=== PATIENT | male | born 1965 | race African-American/Black ===

== ENCOUNTER 2022-07-27 00:32 | Emergency (ER) | payer SELFPAY ==
[~2022-07-27] VITALS: Ht 188 cm; Wt 97.5 kg
--- NOTE | 2022-07-27 03:31 | NUR ---
BIBSELF C/O LEFT SIDE GENITAL PAIN FOR THE PAST 7 MONTHS FELT WORSE TONIGHT. PT A/OX4. RESP EVEN AND NONLABORED ON R/A. PT AMBULATORY WITH STEADY GAIT. SAFETY MEASURES IN PLACE
[2022-07-27] MEDS ORDERED: ONDANSETRON HCL/PF 4 MG/2 ML VIAL ONE ×2 (03:39→10:32)
[2022-07-27] MEDS ORDERED: MORPHINE SULFATE INJ 2 MG/ML DISP.SYRIN ONE (03:39)
[2022-07-27] MEDS ORDERED: MORPHINE SULFATE INJ 2 MG/ML DISP.SYRIN IV ONE ×2 (04:00→11:00)
[2022-07-27] MEDS ORDERED: IV NS 0.9% 500 ML BAG IV ONE (04:00)
[2022-07-27] MEDS ORDERED: ONDANSETRON HCL/PF 4 MG/2 ML VIAL IVP ONE (04:00)
--- NOTE | 2022-07-27 04:01 | NUR ---
L HAND #18G S/L BLOOD COLLECTED AND SENT TO LAB. PT NOT ABLE TO COLLECT URINE AT THIS TIME. WILL F/U AND TRY AGAIN
[2022-07-27 04:04] LABS: BASOPHILS % (AUTO) 0.5 % (0.0-2.0); EOSINOPHILS % (AUTO) 3.2 % (0.0-6.0); HEMATOCRIT 38 % (39-51); HEMOGLOBIN 11.8 g/dL (13.5-17.5); LYMPHOCYTES % (AUTO) 31.8 % (20.0-44.0); MEAN CORPUSCULAR HGB CONC 31 g/dl (31.0-36.0); MEAN CORPUSCULAR VOLUME 77 fL (80-96); MONOCYTES # (AUTO) 0.4 K/uL (0.1-1.30); MONOCYTES % (AUTO) 6.3 % (2.0-12.0); NEUTROPHILS # (AUTO) 3.7 K/uL (1.8-8.9); NEUTROPHILS % (AUTO) 58.2 % (43.0-81.0); PLATELET COUNT (AUTO) 162 K/uL (150-450); RED BLOOD CELL COUNT(AUTO) 4.91 MIL/uL (4.5-6.0); WHITE BLOOD COUNT (AUTO) 6.4 K/uL (4.3-11.0)
[2022-07-27 04:16] LABS: ALBUMIN 3.7 g/dL (3.4-5.0); BILIRUBIN,DIRECT 0.1 mg/dL (0.0-0.2); BILIRUBIN,TOTAL 0.2 mg/dL (0.2-1.0); CALCIUM, SERUM 9.4 mg/dL (8.5-10.1); CREATININE 1.1 mg/dL (0.6-1.3); POTASSIUM 4.3 mmol/L (3.5-5.1); TOTAL PROTEIN, SERUM 7.1 g/dL (6.4-8.2)
--- NOTE | 2022-07-27 04:35 | NUR ---
US TECH AT THE PT'S BEDSIDE
--- NOTE | 2022-07-27 05:06 | NUR ---
SNAKER DRIVING HORSES AT PT'S BEDSIDE
--- NOTE | 2022-07-27 05:16 | NUR ---
URINE SENT TO LAB
--- NOTE | 2022-07-27 06:07 | NUR ---
CALLED STAT RAD TO F/U WITH CT & US RESULTS; ESTIMATED TIME FOR REPORT TO BE READ 2 HRS
[2022-07-27 06:18] LABS: BILIRUBIN,URINE NEGATIVE (NEGATIVE); COLOR,URINE YELLOW (YELLOW); LEUKOCYTE ESTERASE ,URINE NEGATIVE (NEGATIVE); NITRITE, URINE NEGATIVE (NEGATIVE); PROTEIN,URINE NEGATIVE (NEGATIVE); UGLUCOSE NEGATIVE (NEGATIVE); UROBILINOGEN,URINE 0.2 EU/dL (0.2)
[2022-07-27] MEDS ORDERED: KETOROLAC TROMETHAMINE INJ 30 MG/ML VIAL IV ONE (09:30)
[2022-07-27] MEDS ORDERED: KETOROLAC TROMETHAMINE 15 MG/ML VIAL ONE (10:32)
[2022-07-27] MEDS ORDERED: MORPHINE SULFATE INJ 4 MG/ML DISP.SYRIN ONE (10:45)
[2022-07-27] MEDS ORDERED: ONDANSETRON HCL/PF 4 MG/2 ML VIAL IV ONE (11:00)
--- NOTE | 2022-07-27 11:00 | NUR ---
DR MORRISON AT BEDSIDE EXPLAINED THAT THE PT NEED SURGERY FOR HIS OBSTRUCTION, PT STATED THAT HE DOES NOT WANT TO GO THROUGH WITH TREATMENT, EXPLAINED RISKS OF LEAVING INCLUSING , PROCEED TO SIGNED AGAINST MEDICAL ADVISE FORM. IV REMOVED AND 2X2 GUAZE APPLIED FOR PRESSURE. PT LEFT THE FACILITY WALKING.
--- NOTE | 2022-07-27 11:22 | NUR ---
Marisabel shelby in [place] - 07/27/22 at 1122 by MEG Patient discharged to home in stable condition. Written and verbal after care instructions given. Patient verbalizes understanding of instruction.
[2022-07-27 11:47] VITALS: BP 126/82
== END 2022-07-27 11:47 | disposition left against medical advice (07) ==
LOC: ER 00:36
DX: K56.609 Unspecified intestinal obstruction, unspecified as to partial versus complete obstruction (principal); K40.90 Unilateral inguinal hernia, without obstruction or gangrene, not specified as recurrent; N50.89 Other specified disorders of the male genital organs; Z60.2 Problems related to living alone
CPT/HCPCS: 99285; 96374; 72192; 96361; 96375; 96376; 76870; 85025; 80048; 80076; 81003; 36415; 85730; 87081; J2270 ×2; J2405 ×2; J7040; J1885

== ENCOUNTER 2022-07-27 18:42 | Inpatient (IN) | payer MEDICAID ==
[~2022-07-27] VITALS: Ht 188 cm; Wt 83.0 kg
--- NOTE | 2022-07-27 21:00 | NUR ---
TO ER BED 9. BIBS C/O TESTICULAR SWELLING. PT IS ALERT AND ORIENTED. RR EVEN AND NONLABORED. PAIN IS 8/10 ON P/S, WORSE WITH MOVEMENT. CONNECTED TO MONITOR. AWAITING MD EASTMAN
--- NOTE | 2022-07-27 21:15 | NUR ---
CALLED DR BURTON, SPEAKING WITH DR HARE
[2022-07-27] MEDS ORDERED: ONDANSETRON HCL/PF 4 MG/2 ML VIAL ONE (21:25)
[2022-07-27] MEDS ORDERED: MORPHINE SULFATE INJ 4 MG/ML DISP.SYRIN ONE (21:25)
[2022-07-27] MEDS ORDERED: IV NS 0.9% 250 ML IV ONE (21:26)
[2022-07-27] MEDS ORDERED: IOHEXOL-300 100 ML VIAL IV ONE (21:26)
[2022-07-27] MEDS ORDERED: MORPHINE SULFATE INJ 2 MG/ML DISP.SYRIN IV ONE (21:30)
[2022-07-27] MEDS ORDERED: ONDANSETRON HCL/PF - ER 4 MG/2 ML VIAL IV ONE (21:30)
--- NOTE | 2022-07-27 21:36 | NUR ---
COVID SWAB DONE AND SENT TO LAB
--- NOTE | 2022-07-27 21:47 | NUR ---
BLOOD COLLECTED AND SENT TO LAB
--- NOTE | 2022-07-27 21:47 | NUR ---
ELAINE ESTABLISHED, LISA
--- NOTE | 2022-07-27 21:48 | NUR ---
PT TAKEN TO CT SCAN VIA PIO
[2022-07-27 21:53] LABS: BASOPHILS % (AUTO) 0.6 % (0.0-2.0); EOSINOPHILS % (AUTO) 2.5 % (0.0-6.0); HEMATOCRIT 38 % (39-51); HEMOGLOBIN 11.8 g/dL (13.5-17.5); LYMPHOCYTES # (AUTO) 2.1 K/uL (0.8-4.8); MEAN CORPUSCULAR HGB CONC 31 g/dl (31.0-36.0); MEAN CORPUSCULAR VOLUME 77 fL (80-96); MONOCYTES # (AUTO) 0.5 K/uL (0.1-1.30); MONOCYTES % (AUTO) 7.1 % (2.0-12.0); NEUTROPHILS # (AUTO) 4.1 K/uL (1.8-8.9); NEUTROPHILS % (AUTO) 58.8 % (43.0-81.0); PLATELET COUNT (AUTO) 174 K/uL (150-450); RED BLOOD CELL COUNT(AUTO) 4.91 MIL/uL (4.5-6.0); WHITE BLOOD COUNT (AUTO) 6.9 K/uL (4.3-11.0)
--- NOTE | 2022-07-27 21:59 | NUR ---
PT BACK FROM CT WITHOUT INCIDENT, RECONNECTED TO MONITOR
[2022-07-27 22:30] LABS: CALCIUM, SERUM 9.4 mg/dL (8.5-10.1); CREATININE 1.3 mg/dL (0.6-1.3); POTASSIUM 4.7 mmol/L (3.5-5.1)
[2022-07-27] MEDS ORDERED: MAG HYDROX/AL HYDROX/SIMETH 30 ML UDC PO PRN (22:30)
[2022-07-27] MEDS ORDERED: Z GUARD REMEDY 4 OZ OINT TP PRN (22:30)
[2022-07-27] MEDS ORDERED: PIPERACILLIN /TAZOBACTAM 3.375 G in IV D5W 50 ML IV ONE (22:30)
[2022-07-27] MEDS ORDERED: IV NS 0.9% 1,000 ML IV PRN (22:30)
[2022-07-27] MEDS ORDERED: ACETAMINOPHEN 325 MG TABLET PO PRN (22:30)
[2022-07-27] MEDS ORDERED: PIPERACILLIN /TAZOBACTAM 3.375 G VIAL IV ONE (22:59)
--- NOTE | 2022-07-28 01:11 | NUR ---
PT GOING TO 322-1
--- NOTE | 2022-07-28 01:15 | NUR ---
report given to Rasta for CHIP.
[2022-07-28 01:40] VITALS: BP 125/83
--- NOTE | 2022-07-28 01:40 | NUR ---
MS EP[facility]EMIOLOGY [facility] NOTES RECEIVED FROM ER PER PIO THIS 56 YO MALE,ALERT,ORIENTED X4,ABLE TO AMBULATE,WITH CHIEF COMPLAINTS OF LEFT INGUINAL PAIN 2 DAYS PRIOR TO ADMISSION.WITH SALINE LOCK INSERTED IN ER # 20 ON LEFT HAND.NOTED HUGE INGUINAL AREA SWELLING,AND ITS PAINFUL NOW A DAYS.CT ABDOMEN PELVIS SHOWS LEFT INGUINAL HERNIA ESTIMATED 225MM ,CONTAINING SMALL BOWEL,COLON AND VASCULATURE.REFUSED TO BE CHECKED,NO SKIN ISSUES.CALL LIGHT IN REACH,NEEDS ANTICIPATED.
--- NOTE | 2022-07-28 01:40 | NUR ---
pt was transport to the unit on [facility] with emt at bed side on stable condition. Pt ambualted from [facility] to bed on steady gait
[2022-07-28 01:45] VITALS: BP 125/83
[2022-07-28] MEDS: ONDANSETRON HCL/PF 4 MG/2 ML VIAL IVP PRN ×2 (03:19→15:10)
--- NOTE | 2022-07-28 03:19 | NUR ---
MS RN NOTES FEELING NAUSEATED,ZOFRAN 4MG IV GIVEN ORDERED.
[2022-07-28] MEDS: MORPHINE SULFATE INJ 2 MG/ML DISP.SYRIN IV PRN ×4 (03:21→20:54)
--- NOTE | 2022-07-28 03:21 | NUR ---
MS RN NOTES HAVING PAIN ON LEFT INGUINAL AREA,MORPHINE 4MG IV GIVEN ORDERED.VITAL SIGNS STABLE.
--- NOTE | 2022-07-28 03:22 | NUR ---
MS RN NOTES STARTED ON IVF NS AT 75ML/HR RATE FOR HYDRATION
--- NOTE | 2022-07-28 07:15 | NUR ---
MS RN NOTES CHARGE NURSE INFORMED RN,PATIENT GOING FOR SURGERY THIS MORNING AT 11AM, REPAIR OF INCARCERATED HERNIA BY DR BURTON.PATIENT MADE AWARE.BREAKFAST HELD,NAKITA AZEVEDO AND EVELIO JOSEPH MADE AWARE.
--- NOTE | 2022-07-28 07:38 | NUR ---
MS RN OPENING NOTES RECEIVED PATIENT IN HIS ROOM, AOX4, AMBULATORY, PATIENT ON ROOM AIR SATURATING WELL AT 98% WITH NO NOTED RESPIRATORY DISTRESS. PATIENT HAS LFA G#20 IV ACCESS, PATENT, FLUSHES WELL. PATIENT HAS BEEN PLACING HIS IV FLUIDS OF NS ON AND OFF DESPITE HEALTH TEACHINGS. PATIENT HAS BEEN PLACED ON NPO A FEW MINUTES AGO BY NIGHT NURSE. FOR HERNIA REPAIR SURGERY BY DR BURTON, WILL CONTINUE TO MONITOR STRICT ADHERENCE. SAFETY MEASURES IN PLACE: BED AT LOWEST POSITION, LOCKED, SIDE RAILS UP X2, CALL LIGHT AND TRAY TABLE WITHIN REACH. WILL CONTINUE TO MONITOR DURING MY SHIFT.
--- NOTE | 2022-07-28 07:58 | NUR ---
RN NOTES - PAIN MEDICATION PATIENT REPORTS 9/10 LEFT INGUINAL PAIN, ADMINISTERED MORPHINE SULFATE 4 MG VIA IV. WILL CONTINUE TO MONITOR.
[2022-07-28 08:00] VITALS: BP 136/94
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
--- NOTE | 2022-07-28 08:10 | NUR ---
RN NOTE - PUBLIC RELATIONS WRITER IN THE ROOM PT'S ROOM SMELLED LIKE CIGARETTE, NO CIGARETTE OR SMOKE NOTED. CHARGE NURSE AND PUBLIC RELATIONS WRITER INFORMED PT OF SMOKING POLICY. WILL CONTINUE TO MONITOR.
[2022-07-28] MEDS: PANTOPRAZOLE 40 MG VIAL IV SCH (08:26)
[2022-07-28 08:47] LABS: BASOPHILS % (AUTO) 0.4 % (0.0-2.0); EOSINOPHILS % (AUTO) 2.9 % (0.0-6.0); HEMATOCRIT 41 % (39-51); HEMOGLOBIN 12.8 g/dL (13.5-17.5); LYMPHOCYTES # (AUTO) 2.6 K/uL (0.8-4.8); LYMPHOCYTES % (AUTO) 39.9 % (20.0-44.0); MEAN CORPUSCULAR HGB CONC 31 g/dl (31.0-36.0); MEAN CORPUSCULAR VOLUME 77 fL (80-96); MONOCYTES # (AUTO) 0.5 K/uL (0.1-1.30); MONOCYTES % (AUTO) 6.9 % (2.0-12.0); NEUTROPHILS # (AUTO) 3.3 K/uL (1.8-8.9); NEUTROPHILS % (AUTO) 49.9 % (43.0-81.0); PLATELET COUNT (AUTO) 184 K/uL (150-450); RED BLOOD CELL COUNT(AUTO) 5.28 MIL/uL (4.5-6.0); WHITE BLOOD COUNT (AUTO) 6.6 K/uL (4.3-11.0)
--- NOTE | 2022-07-28 09:10 | NUR ---
RN NOTES - MD CONSULT DR BURTON AT BEDSIDE, DISCUSSED PLAN FOR SURGERY TOMORROW MORNING 07/29 AT 0730, NPO IS AWAKE OF NPO AT MIDNIGHT.
[2022-07-28 09:32] LABS: CALCIUM, SERUM 9.4 mg/dL (8.5-10.1); CREATININE 1.2 mg/dL (0.6-1.3); MAGNESIUM 2.3 mg/dL (1.8-2.4); POTASSIUM 3.9 mmol/L (3.5-5.1); THYROID STIMULATING HORMONE 3.586 uIU/mL (0.358-3.74)
--- NOTE | 2022-07-28 10:45 | NUR ---
RN NOTES - SURGERY CONSENTS SIGNED.
--- NOTE | 2022-07-28 14:57 | NUR ---
RN NOTES - CALLED SECURITY TO CHECK PT, ROOM SMELLS LIKE CIGARETTE SMOKE.
--- NOTE | 2022-07-28 15:07 | NUR ---
RN NOTES - PT WANTED TO WALK TO GET SOME SUN, OFFERED TO WALK FOR 10 MINS AT 1500 PT AGREED, WHEN I CAME BACK TO HIS ROOM HE SAID HE IS IN PAIN AND NAUSEOUS, WANTED TO JUST LAY DOWN INSTEAD. I TOLD HIM THAT I WILL NOT HAVE TIME TO TAKE HIM FOR A WALK LATER, AGREED.
--- NOTE | 2022-07-28 15:17 | NUR ---
RN NOTES PATIENT REFUSED FOR HIS VITAL SIGNS TO BE TAKEN, JUST WANTED TO LAY DOWN BECAUSE HE IS IN PAIN AND NAUSEOUS. GIVEN MORPHINE 4 MG VIA IV AND ZOFRAN, WILL CONTINUE TO MONITOR.
--- NOTE | 2022-07-28 17:14 | NUR ---
RN NOTES - DINORAH SILVERIO ANESTH. CALLED TO INFORM THAT PATIENT MUST BE ON STRICT NPO STARTING 2330 TONIGHT. SPOKE WITH THE PATIENT AND REITERATED NPO ADHERENCE, PATIENT UNDERSTANDS THAT NON-COMPLIANCE COULD BE FATAL. SIGN UP TO REMIND EVERYONE. WILL ENDORSE TO THE NEXT NURSE.
--- NOTE | 2022-07-28 18:41 | NUR ---
MS RN CLOSING NOTES PATIENT IN HIS ROOM, AOX4, AMBULATORY, PATIENT ON ROOM AIR WITH NO APPARENT RESPIRATORY DISTRESS. PATIENT HAS LFA G#20 IV ACCESS, PATENT, FLUSHES WELL. NS IV IS ON HOLD SINCE PATIENT KEEPS REMOVING IT DESPITE MULTIPLE REMINDERS. PATIENT HAD 2 TRAYS OF DINNER AND IS AWARE OF THE NPO STARTING 2330 FOR THE HERNIA REPAIR SURGERY BY DR BURTON AT 0730 TOMORROW. SAFETY MEASURES MAINTAINED: BED AT LOWEST POSITION, LOCKED, SIDE RAILS UP X2, CALL LIGHT AND TRAY TABLE WITHIN REACH. WILL ENDORSE TO MAINTENANCE PAINTER APPRENTICE.
--- NOTE | 2022-07-28 19:34 | NUR ---
RN OPENING NOTES RECEIVED PT LAYING IN BED ASLEEP, AWAKENS TO VERBAL STIMULI. AOX4, ABLE TO MAKE NEEDS KNOWN. ON RA AND TOLERATING WELL. NO SOB NOTED. NO S/SX OF DISTRESS NOTE. IV ACCESS IN LFA #20G. PATIENT REFUSES IV FLUIDS. SAFETY PRECAUTIONS IN PLACE: BED IN LOWEST, LOCKED POSITION, SIDERAILS UPx2, AND BRAKES ON. TABLE AND CALL LIGHT WITHIN REACH. ALL NEEDS MET AT THIS TIME. Addendum: 07/29/22 at 0022 by DAVID TOUSSAINT RN REMINDED PATIENT THAT HE IS NPO AFTER 2230. Addendum: 07/29/22 at 0024 by DAVID TOUSSAINT RN TIME SHOULD BE 2330.
[2022-07-28 20:00] VITALS: BP 107/57
--- NOTE | 2022-07-28 20:03 | NUR ---
RN NOTES PT TRYING TO GO DOWN ELEVATOR. EDUCATED PATIENT THAT SINCE HE IS IN THE HOSPITAL HE SHOULD NOT LEAVE THE FLOOR. PT BECAME AGITATED AND SAID "WHAT DO YOU MEAN I CANT GO DOWN? I AM ABLE TO LEAVE." EXPLAINED THAT PATIENT IS UNSTABLE AND SHOULD NOT BE WALKING ON OTHER FLOORS DUE TO SAFETY AND HEALTH. PT SAID "YOU AREN'T GIVING ME THE WHOLE TRUTH. DEMOCRATS DON'T TELL THE WHOLE TRUTH. SHE'S LIKE A [employer]." EXPLAINED TO PATIENT THAT ONLY PTS WHO SIGN A FORM TO SMOKE CAN GO DOWNSTAIRS TO SMOKE. SAID HE WOULD SIGN FORM AND BECAME FURTHER AGITATED WHEN SECURITY ARRIVED. CONTINUED TO SAY WE WERE KEEPING THE WHOLE TRUTH FROM HIM. SIGNED SMOKING FORM. ACCOMPANIED BY 2 SECURITY GUARDS AND ERIC MACE DOWNSMARIAH.
--- NOTE | 2022-07-28 20:54 | NUR ---
RN NOTES ADMINISTERED MORPHINE FOR PAIN 05/29 PER MD ORDER. VS WNL.
--- NOTE | 2022-07-28 21:13 | NUR ---
RN NOTES ADMINISTERED MORPHINE PER PT "I WAS TRYING TO SORT OUT THE NASTY PEOPLE. I KNOW THE POLICIES AND HAVE BEEN HERE YEARS BEFORE. I HAD MY VACUUM DRIER TENDER AND CIGARETTES IN MY POCKET TO GO SMOKE OUTSIDE. I HAVE DEALT WITH THOSE SECURITY GUARDS AND THAT CHARGE NURSE BEFORE." NURSE WHO ADDRESSED PATIENT WAS PRIMARY NURSE AND HAS NEVER BEEN CHARGE NURSE.
--- NOTE | 2022-07-28 23:30 | NUR ---
RN NOTES ENTERED PATIENT'S ROOM TO CHECK FOR FOOD. NO FOOD SEEN AT BEDSIDE AND PT ASLEEP IN BED. REPEATED PATIENT'S ORDER FOR NPO AT 2315. PT VERBALIZED THAT HE UNDERSTANDS.
[2022-07-29] MEDS: MORPHINE SULFATE INJ 2 MG/ML DISP.SYRIN IV PRN ×2 (03:25→07:29)
[2022-07-29] MEDS: ONDANSETRON HCL/PF 4 MG/2 ML VIAL IVP PRN (03:26)
--- NOTE | 2022-07-29 03:26 | NUR ---
RN NOTES ADMINISTERED MORPHINE FOR PAIN 06/29 PER MD ORDER. VS WNL. ADMINISTERED ZOFRAN FOR NAUSEA PER PT REQUEST.
--- NOTE | 2022-07-29 05:20 | NUR ---
RT Pt refused EKG. RN notified.
--- NOTE | 2022-07-29 05:22 | NUR ---
RN NOTES PT REFUSED PRE-OP EKG.
--- NOTE | 2022-07-29 06:43 | NUR ---
RN CLOSING NOTES PT LAYING IN BED, ASLEEP, AWAKENS TO VERBAL STIMULI. AOX4, ABLE TO MAKE NEEDS KNOWN. ON RA AND TOLERATING WELL. NO SOB NOTED. NO S/SX OF DISTRESS NOTE. IV ACCESS IN LFA #20G. PATIENT REFUSES IV FLUIDS. ALL ORDERS CARRIED OUT. ALL NEEDS MET. PT KEPT CLEAN AND DRY. INFORMED PT OF NPO STATUS AFTER 2330. NO FOOD OR FLUIDS IN ROOM. SAFETY PRECAUTIONS IN PLACE: BED IN LOWEST, LOCKED POSITION, SIDERAILS UPx2, AND BRAKES ON. TABLE AND CALL LIGHT WITHIN REACH. WILL ENDORSE TO ONCOMING SHIFT FOR CHIP.
[2022-07-29] MEDS ORDERED: ANESTHESIA TRAY IN PYXIS 1 EA TRAY MC ONE ×2 (07:04→09:27)
[2022-07-29] MEDS ORDERED: ROCURONIUM BROMIDE 50 MG/5 ML ONE (07:07)
[2022-07-29] MEDS ORDERED: FENTANYL PF 100MCG/2ML AMPUL ONE (07:07)
--- NOTE | 2022-07-29 07:17 | NUR ---
RN NOTE- PT REFUSES TO GO TO SURGERY. OUTSIDE LABORER AWARE. MAKING MD AWARE
[2022-07-29] MEDS ORDERED: LIDOCAINE 1% INJ 50 ML MDV IJ ONE (07:24)
[2022-07-29] MEDS ORDERED: BUPIVACAINE MPF W/EPI 0.25% 30 ML VIAL ONE (07:24)
[2022-07-29] MEDS ORDERED: LIDOCAINE HCL/PF 1% 30 ML SDV ONE ×2 (07:25→07:28)
[2022-07-29] MEDS: PANTOPRAZOLE 40 MG VIAL IV SCH (09:05)
--- NOTE | 2022-07-29 09:56 | NUR ---
RN NOTE- PT LEFT AMA. EXPLAINED RISKS AND BENEFITS. PT INSISTS ON LEAVING AMA. SIGNED AMA FORM, IV HEPLOCK REMOVED. ID [id number] REMOVED. ESCORTED OUT OF HOSPITAL BY STAFF
== END 2022-07-29 10:00 | disposition left against medical advice (07) | DRG 254 ==
LOC: ER 18:47 → MED 07-28 01:20
PROVIDERS: ADMIT Nurse Practitioner Acute Care; ATTEND Nurse Practitioner Acute Care
DX: K40.90 Unilateral inguinal hernia, without obstruction or gangrene, not specified as recurrent (principal); D63.8 Anemia in other chronic diseases classified elsewhere; F17.210 Nicotine dependence, cigarettes, uncomplicated; Z20.822 Contact with and (suspected) exposure to COVID-19; K42.9 Umbilical hernia without obstruction or gangrene; N45.1 Epididymitis; N30.90 Cystitis, unspecified without hematuria; K83.8 Other specified diseases of biliary tract
CPT/HCPCS: 36415; 80048-TC; 83605-TC; 83735-TC; 84100-TC; 84443-TC; 85025-TC; 85652-TC; 86140-TC; C9113; C9803; G0378; J2270; J2405; J2543; J3010; J3490; J7030; J7050; J7060; Q9967